=== PATIENT | male | born 1960 | race Caucasian/White ===

== ENCOUNTER 2023-09-16 11:48 | Emergency (ER) | payer OTHER ==
[~2023-09-16] VITALS: Ht 180.3 cm; Wt 97.5 kg
[2023-09-16 11:52] VITALS: BP 158/101
[2023-09-16] MEDS ORDERED: AMOCLA875 PO (13:20)
== END 2023-09-16 13:47 | disposition home or self-care (01) ==
LOC: ER 11:48
DX: H66.91 Otitis media, unspecified, right ear (principal)
CPT/HCPCS: 99282